=== PATIENT | male | born 1975 | race Two or more races ===

== ENCOUNTER 2020-05-30 08:35 | Emergency (ER) | payer SELFPAY ==
--- NOTE | 2020-05-30 09:14 | EDM.PDOC ---
ED HPI GENERAL MEDICAL PROBLEM - General Chief Complaint: Genitourinary Problem Stated Complaint: BLOOD IN URINE/BACK PAIN Time Seen by Provider: 05/30/20 09:08 Source of Information: Reports: Patient History Limitations: Reports: No Limitations - History of Present Illness INITIAL COMMENTS - FREE TEXT/NARRATIVE: 45-year-old male of [place] descent presents to the ED with history of gross hematuria x3 days. He reports blood in all of his urine passages over the last 3 days. This morning it is dark blood in color. He has no dysuria urgency frequency. No fever or chills. No flank pain. So far no clots have come out of the urethra. No past history of gross hematuria. No past history of renal lithiasis. No history of recent trauma to the flanks. 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: Other (see below) (None.) Lower Back Pain Score (Numeric/FACES): 2 - Related Data Allergies Allergy/AdvReac Type Severity Reaction Status Date / Time No Known Allergies Allergy Verified 05/30/20 09:00 Home Meds: Home Meds levoFLOXacin [Levaquin] 500 mg PO DAILY #9 tab 05/30/20 [Rx] Social & Family History - Living Situation & Occupation Occupation: Employed ED ROS GENERAL - Review of Systems Review Of Systems: See Below Constitutional: Denies: Fever, Chills, Malaise, Weakness, Fatigue, Decreased Appetite, Weight Loss HEENT: Reports: No Symptoms Respiratory: Reports: No Symptoms Cardiovascular: Reports: No Symptoms Endocrine: Reports: No Symptoms GI/Abdominal: Reports: Abdominal Pain (Perhaps very intermittent left lower quadrant abdominal pain.) : Reports: Frequency, Other (Gross hematuria x3 days.) Musculoskeletal: Reports: No Symptoms Skin: Reports: No Symptoms Neurological: Reports: No Symptoms Psychiatric: Reports: No Symptoms ED EXAM, RENAL/ - Physical Exam Exam: See Below Exam Limited By: No Limitations General Appearance: Alert, WD/WN, Anxious, Mild Distress, Other (Temperature is 36.7. Heart rate is 71 is sinus respiratory is 14 with an O2 sat of 100% room air BP 1 [phone].) Eye Exam: Bilateral Eye: Normal Inspection, PERRL (Blepharal pallor.) Throat/Mouth: Normal Inspection, Normal Lips, Normal Teeth, Normal Oropharynx Head: Atraumatic, Normocephalic Neck: Normal Inspection, Supple, Non-Tender, Full Range of Motion. No: Carotid Bruit, Lymphadenopathy (L), Lymphadenopathy (R) Respiratory/Chest: No Respiratory Distress, Lungs Clear, Normal Breath Sounds, No Accessory Muscle Use, Chest Non-Tender Cardiovascular: Normal Peripheral Pulses, Regular Rate, Rhythm, No Edema, No Gallop, No Murmur, No Rub GI/Abdominal: Normal Bowel Sounds, Soft, Non-Tender, No Organomegaly, No Abnormal Bruit, No Mass, Pelvis Stable, Other (No surgical scars) (Male) Exam: Circumcised, Other (No blood at the urethral meatus. Both testes within normal limits.) Back Exam: Normal Inspection, Full Range of Motion. No: CVA Tenderness (L), CVA Tenderness (R) Extremities: Normal Inspection, Normal Range of Motion, Non-Tender, No Pedal Edema Neurological: Alert, Oriented, CN II-XII Intact, Normal Cognition Psychiatric: Anxious Skin Exam: Warm, Dry (Only anxious.), Intact, Normal Color, Cool (Cool to touch.) Course - Vital Signs Last Recorded V/S: Last Vital Signs Temp 36.7 C 05/30/20 09:01 Pulse 71 05/30/20 09:01 Resp 14 05/30/20 09:01 BP 168/86 H 05/30/20 09:01 Pulse Ox 100 05/30/20 09:01 - Orders/Labs/Meds Orders: Active Orders 24 hr Category Date Time Status CULTURE URINE [RM] Stat Lab 05/30/20 09:00 Received Sodium Chloride 0.9% [Saline Flush] Med 05/30/20 09:21 Active 10 ml FLUSH ONETIME PRN levoFLOXacin [Levaquin] Med 05/30/20 10:59 Once 500 mg PO ONETIME ONE Medication Orders Levofloxacin (Levaquin) 500 mg PO ONETIME ONE Stop: 05/30/20 11:00 Sodium Chloride (Saline Flush) 10 ml FLUSH ONETIME PRN PRN Reason: Keep Vein Open Last Admin: 05/30/20 09:39 Dose: 10 ml Documented by: JASE Labs: Laboratory Tests 05/30/20 05/30/20 05/30/20 Range/Units 09:00 09:15 09:15 WBC 4.53 (4.23-9.07) K/mm3 RBC 4.36 L (4.63-6.08) M/mm3 Hgb 12.3 L (13.7-17.5) gm/dl Hct 37.5 L (40.1-51.0) % MCV 86.0 (79.0-92.2) fl MCH 28.2 (25.7-32.2) pg MCHC 32.8 (32.2-35.5) g/dl RDW Std Deviation 39.4 (35.1-43.9) fL Plt Count 302 (163-337) K/mm3 MPV 10.5 (9.4-12.3) fl Neut % (Auto) 72.2 H (34.0-67.9) % Lymph % (Auto) 18.1 L (21.8-53.1) % [place] % (Auto) 8.6 (5.3-12.2) % Eos % (Auto) 0.7 L (0.8-7.0) Baso % (Auto) 0.2 (0.1-1.2) % Neut # (Auto) 3.27 (1.78-5.38) K/mm3 Lymph # (Auto) 0.82 L (1.32-3.57) K/mm3 [place] # (Auto) 0.39 (0.30-0.82) K/mm3 Eos # (Auto) 0.03 L (0.04-0.54) K/mm3 Baso # (Auto) 0.01 (0.01-0.08) K/mm3 Manual Slide Review Agricultural Services Director PT 10.9 (9.7-11.7) SECONDS INR 1.02 APTT 27 (22-31) SECONDS Sodium (136-145) mEq/L Potassium (3.5-5.1) mEq/L Chloride (98-107) mEq/L Carbon Dioxide (21-32) mEq/L Anion Gap (5-15) BUN (7-18) mg/dL Creatinine (0.7-1.3) mg/dL Est Cr Clr Drug Dosing mL/min Estimated GFR (MDRD) (>60) mL/min BUN/Creatinine Ratio (14-18) Glucose (74-106) mg/dL Calcium (8.5-10.1) mg/dL Total Bilirubin (0.2-1.0) mg/dL AST (15-37) U/L ALT (16-63) U/L Alkaline Phosphatase (46-116) U/L Total Protein (6.4-8.2) g/dl Albumin (3.4-5.0) g/dl Globulin gm/dL Albumin/Globulin Ratio (1-2) Urine Color Red H (Yellow) Urine Appearance Cloudy H (Clear) Urine pH 5.5 (5.0-8.0) Ur Specific [place] 1.015 (1.005-1.030) Urine Protein 3+ H (Negative) Urine Glucose (UA) Negative (Negative) Urine Ketones 1+ H (Negative) Urine Occult Blood 3+ H (Negative) Urine Nitrite Negative (Negative) Urine Bilirubin 3+ H (Negative) Urine Urobilinogen 1.0 (0.2-1.0) Ur Leukocyte Esterase 3+ H (Negative) Urine RBC Too numerous to cnt H (0-5) /hpf Urine WBC 20-30 H (0-5) /hpf Ur Epithelial Cells Not seen (0-5) /hpf Urine Bacteria Moderate H (FEW) /hpf Urine Mucus Not seen (FEW) /hpf 05/30/20 Range/Units 09:15 WBC (4.23-9.07) K/mm3 RBC (4.63-6.08) M/mm3 Hgb (13.7-17.5) gm/dl Hct (40.1-51.0) % MCV (79.0-92.2) fl MCH (25.7-32.2) pg MCHC (32.2-35.5) g/dl RDW Std Deviation (35.1-43.9) fL Plt Count (163-337) K/mm3 MPV (9.4-12.3) fl Neut % (Auto) (34.0-67.9) % Lymph % (Auto) (21.8-53.1) % [place] % (Auto) (5.3-12.2) % Eos % (Auto) (0.8-7.0) Baso % (Auto) (0.1-1.2) % Neut # (Auto) (1.78-5.38) K/mm3 Lymph # (Auto) (1.32-3.57) K/mm3 [place] # (Auto) (0.30-0.82) K/mm3 Eos # (Auto) (0.04-0.54) K/mm3 Baso # (Auto) (0.01-0.08) K/mm3 Manual Slide Review PT (9.7-11.7) SECONDS INR APTT (22-31) SECONDS Sodium 136 (136-145) mEq/L Potassium 3.8 (3.5-5.1) mEq/L Chloride 100 (98-107) mEq/L Carbon Dioxide 25 (21-32) mEq/L Anion Gap 14.8 (5-15) BUN 24 H (7-18) mg/dL Creatinine 1.4 H (0.7-1.3) mg/dL Est Cr Clr Drug Dosing 61.39 mL/min Estimated GFR (MDRD) 55 (>60) mL/min BUN/Creatinine Ratio 17.1 (14-18) Glucose 151 H (74-106) mg/dL Calcium 8.8 (8.5-10.1) mg/dL Total Bilirubin 0.6 (0.2-1.0) mg/dL AST 22 (15-37) U/L ALT 41 (16-63) U/L Alkaline Phosphatase 66 (46-116) U/L Total Protein 8.2 (6.4-8.2) g/dl Albumin 3.3 L (3.4-5.0) g/dl Globulin 4.9 gm/dL Albumin/Globulin Ratio 0.7 L (1-2) Urine Color (Yellow) Urine Appearance (Clear) Urine pH (5.0-8.0) Ur Specific [place] (1.005-1.030) Urine Protein (Negative) Urine Glucose (UA) (Negative) Urine Ketones (Negative) Urine Occult Blood (Negative) Urine Nitrite (Negative) Urine Bilirubin (Negative) Urine Urobilinogen (0.2-1.0) Ur Leukocyte Esterase (Negative) Urine RBC (0-5) /hpf Urine WBC (0-5) /hpf Ur Epithelial Cells (0-5) /hpf Urine Bacteria (FEW) /hpf Urine Mucus (FEW) /hpf Meds: Medications Generic Name Dose Route Start Last Admin Trade Name Freq PRN Reason Stop Dose Admin Levofloxacin 500 mg 05/30/20 10:59 Levaquin PO 05/30/20 11:00 ONETIME ONE Sodium Chloride 10 ml 05/30/20 09:21 05/30/20 09:39 Saline Flush FLUSH 10 ml ONETIME PRN Administration Keep Vein Open Discontinued Medications Generic Name Dose Route Start Last Admin Trade Name Freq PRN Reason Stop Dose Admin Iopamidol 100 ml 05/30/20 09:21 05/30/20 09:39 Isovue-300 (61%) IVPUSH 05/30/20 09:22 100 ml ONETIME ONE Administration - Radiology Interpretation Free Text/Narrative:: 45-year-old male of [place] descent presents to the ED with a history of gross hematuria x3 days. Hematuria is painless. He has no other symptoms. No other finding on file physical exam. Plan urinalysis to be completed and the urine that he passed in the ED is dark bloody in color. He will have CT of the abdomen and pelvis with IV contrast to rule out renal tumor or ureteric mass. - Re-Assessments/Exams Free Text/Narrative Re-Assessment/Exam: 05/30/20 09:53 the scan of the abdomen pelvis has been performed per renal protocol without contrast. It reveals a small to moderate sized hiatal hernia. Visualized lung bases are normal. Cardiac silhouette base is normal. Liver appears homogeneous without any intraductal dilatation. Gallbladder contains no calcified gallstones. Pancreas is normal stomach appears normal. Spleen appears normal adrenal glands appear normal with no nodules. Patient has severe bilateral polycystic kidney disease with a left much larger than the right. No obvious stones are evident in either kidney. The ureters are very difficult to identify on CT exam. Portions of the bowel small and large appear to be normal. No free fluid in the pelvis. Will await the radiologist's opinion. 05/30/20 10:12 radiology report is now available. Numerous renal cysts are seen which almost completely replaced the left kidney. Findings are compatible with severe polycystic kidney disease. No ureteral dilatation or ureteral stone is appreciated. Slight inflammatory changes seen around a portion of the left posterior kidney which may represent change from infection or are due to 1 of the cysts leaking. Delayed images show contrast within the right ureter. Small amount of contrast seen within the left ureter. Left renal function appears significantly less than on the right side with no contrast noted within the left ureter. No bladder calculi are seen. Visualized lung bases show nothing acute. Liver shows multiple small cysts. Largest cyst measures 1.2 cm. Mild fatty infiltration is also seen within the liver cyst likely due to additional polycystic liver disease. Spleen appears normal. Adrenal glands show no nodules. Adrenal glands show no nodules. Pancreas is within normal limits. Aorta shows no aneurysm. No retroperitoneal needle adenopathy or mesenteric abnormalities are seen no pelvic mass or adenopathy is identified. Appendix is seen which is normal in size. Impression is polycystic renal disease and polycystic liver disease. Findings worse within the left kidney. Less function of the left kidney as compared to the right side is noted. Mild inflammatory change around the posterior left kidney. Differential includes infection as well as change from leakage of 1 of the left renal cyst. Fatty infiltration of the liver. 05/30/20 10:16 White blood cell count is 4.53 auto differential shows 72.2% neutrophils. Hemoglobin is 12.3 with hematocrit of 37.5. Platelet counts 302,000. MCV is 86. PT is 10.9 with an INR of 1.02. PTT is 27. Sodium is 136 with a potassium of 3.8. Chloride 100. Bicarb 25. Anion gap is 14.8 BUN is 24 with a creatinine of 1.4. GFR is 55. Glucose is elevated 151. Calcium is 8.8 liver function normal total protein 8.2 with a slightly low albumin fraction of 3.3. Urinalysis is red cloudy with 3+ proteinuria 1+ ketones and 3+ occult blood. There is also 3+ bilirubin. 3+ leukocyte esterase too numerous to count red cells 20-30 WBCs moderate bacteria appreciated. Urine culture ordered. 05/30/20 11:[address] Flannery urologist at [facility] in [place] and he agrees with treatment with antibiotic Levaquin 500 mg daily for 10 days due to suspect hemorrhagic cystitis. He will need follow-up with nephrology when he gets back home. Patient advised in this regard. Drink plenty of fluids to try and prevent any clotting. Hopefully the antibiotic cleans up the urine over the next 3 days. Meant to excuse him from the workplace which is a lot of heavy lifting pushing and pulling for the next 2 days. Departure - Departure Time of Disposition: 11:04 Disposition: Home, Self-Care 01 Condition: Fair Clinical Impression: Gross hematuria, Polycystic kidney disease, UTI, Urinary tract infectious disease - Discharge Information *PRESCRIPTION DRUG MONITORING PROGRAM REVIEWED*: Not Applicable *COPY OF PRESCRIPTION DRUG MONITORING REPORT IN PATIENT JENNIFER: Not Applicable Prescriptions: levoFLOXacin [Levaquin] 500 mg PO DAILY #9 tab Instructions: Polycystic Kidney Disease, Adult, Urinary Tract Infection, Adult, [id number] Referrals: PCP,None [Primary Care Provider] - Forms: ED Department Discharge, ED Return to Work/School Form Additional Instructions: Evaluation in the emergency room this morning in regards to a 3-day history of passage of conchis blood in your urine which we called gross hematuria which means we can see it. 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 Someone else in your family most likely h as this and passed on to you genetically. Your brothers and sister should be checked as should your children for this disorder. Treatment today is antibiotic Levaquin 500 mg once daily for the next 10 days with the first tablet being given in the ED. Drink plenty of fluids to prevent the blood from clotting in the urinary system. You will need to follow-up with a kidney specialist or leave coordinator when you get back home in the near future and they will have to follow you along on a yearly basis as this disorder usually is progressive and will usually end up in renal failure. Expect the bleeding to improve and go away over the next 3 to 4 days. Off work for the next 2 days to eliminate some of the heavy lifting pushing and pulling which may aggravate bleeding from the kidney until it is healed. Sepsis Event Note (ED) - Evaluation Sepsis Screening Result: No Definite Risk - Focused Exam Vital Signs: Vital Signs Temp Pulse Resp BP Pulse Ox 05/30/20 09:01 36.7 C 71 14 168/86 H 100 - My Orders Last 24 Hours: My Active Orders 05/30/20 09:00 CULTURE URINE [RM] Stat 05/30/20 09:21 Sodium Chloride 0.9% [Saline Flush] 10 ml FLUSH ONETIME PRN 05/30/20 10:59 levoFLOXacin [Levaquin] 500 mg PO ONETIME ONE - Assessment/Plan Last 24 Hours: My Active Orders 05/30/20 09:00 CULTURE URINE [RM] Stat 05/30/20 09:21 Sodium Chloride 0.9% [Saline Flush] 10 ml FLUSH ONETIME PRN 05/30/20 10:59 levoFLOXacin [Levaquin] 500 mg PO ONETIME ONE
[2020-05-30] MEDS ORDERED: Iopamidol 612 MG/ML 100 ML Bottle IVPUSH ONE (09:21)
[2020-05-30] MEDS ORDERED: Sodium Chloride 0.9% 10 ML Syringe FLUSH PRN (09:21)
--- NOTE | 2020-05-30 09:57 | CT ---
CT abdomen and pelvis Technique: Multiple axial sections were obtained from above the dome of the diaphragm inferiorly through the pubic symphysis. Intravenous contrast was utilized. No oral contrast has been given. Delayed images were obtained through the abdomen and pelvis. Reconstructed coronal and sagittal images were obtained. Comparison: No previous abdominal imaging is available. Findings: Numerous renal cysts are seen which almost completely replaced the left kidney. Findings compatible with polycystic kidney disease. No ureteral dilatation or ureteral stone is appreciated. Slight inflammatory change is seen around a portion of the left posterior kidney which may represent change from infection are from 1 of the cyst leaking. Delayed images shows contrast within the right ureter. Small amount of contrast seen within the left ureter. Left renal function appears significantly less than the right kidney with no contrast noted within the ureter. No bladder calculi are seen. Visualized lung bases show nothing acute. Liver shows multiple small cysts. Largest cyst measures 1.2 cm. Mild fatty infiltration is also seen within the liver. Cysts likely due to additional polycystic liver disease. Spleen appears normal. Adrenal glands show no nodule. Pancreas is within normal limits. Aorta shows no aneurysm. No retroperitoneal adenopathy or mesenteric abnormalities are seen. No pelvic mass or adenopathy is identified. Appendix is seen which is normal in size. Impression: 1. Polycystic renal disease and polycystic liver disease. Findings worse within the left kidney. Less function of the left kidney as compared to the right side is noted. 2. Mild inflammatory change around the posterior left kidney. Differential includes infection as well as change from leakage of 1 of the left renal cysts. 3. Fatty infiltration within the liver. 4. No other acute abnormality is appreciated. Diagnostic code #3 This report was dictated in MDT
[2020-05-30] MEDS ORDERED: Levofloxacin 250 MG Tab PO ONE (10:59)
== END 2020-05-30 11:30 | disposition home or self-care (01) ==
LOC: JD.ED 08:35
DX: N39.0 Urinary tract infection, site not specified (principal); R31.0 Gross hematuria; Q61.3 Polycystic kidney, unspecified
CPT/HCPCS: 36415; 74177; 80053; 81001; 85025; 85610; 85730; 87086; 99284; A9270; Q9967